=== PATIENT | female | born 1965 | race Caucasian/White ===

== ENCOUNTER 2017-07-24 06:02 | Day surgery (SDC) | payer MEDICARE, OTHER ==
[~2017-07-24] VITALS: Ht 157.5 cm; Wt 60.5 kg
[~2017-07-24 06:02] MED LIST: ALBU8.5H8 IH; FAMO20 PO; HYDR200T4 PO; MONT10TA21 PO
[2017-07-24] MEDS ORDERED: LIDOCAINE HCL 2% 30 ML JELLY TP ONE (06:03)
[2017-07-24] MEDS ORDERED: BENZOCAINE 20% 50 MCG/SPRAY 57 GM TP ONE (06:03)
[2017-07-24] MEDS ORDERED: LIDOCAINE HCL 4% 50 ML SOLUTION TP ONE (06:03)
[2017-07-24] MEDS ORDERED: SODIUM CHLORIDE 0.9% 1,000 ML IV ONE ×2 (06:30→06:40)
[2017-07-24] MEDS ORDERED: MIDAZOLAM HCL 2 MG/2 ML VIAL ONE (07:28)
[2017-07-24] MEDS ORDERED: FentaNYL CITRATE-PF 100 MCG/2 ML VIAL ONE (07:28)
[2017-07-24] MEDS ORDERED: MethylPREDNISolone SOD SUCC 125 MG/2 ML VIAL IVP ONE (08:45)
[2017-07-24] MEDS ORDERED: MethylPREDNISolone SOD SUCC 125 MG/2 ML VIAL ONE (09:14)
[2017-07-24] MEDS ORDERED: OXYGEN THERAPY IH SCH (20:00)
== END 2017-07-24 10:10 | disposition home or self-care (01) ==
LOC: SURGERY 06:02
PROVIDERS: ATTEND Internal Medicine Critical Care Medicine
DX: J38.4 Edema of larynx (principal); B37.0 Candidal stomatitis; D71 Functional disorders of polymorphonuclear neutrophils; L93.0 Discoid lupus erythematosus; D86.9 Sarcoidosis, unspecified; H40.9 Unspecified glaucoma; Z98.890 Other specified postprocedural states; Z98.42 Cataract extraction status, left eye; Z98.41 Cataract extraction status, right eye
CPT/HCPCS: 31623; 31624; 71010; 87015 ×2; 87070; 87101; 87205; 87220; 88108; 88184; 88185; 88312; J2250; J2930; J3010; J7030

== ENCOUNTER 2019-04-29 06:02 | Day surgery (SDC) | payer MEDICARE, OTHER ==
[~2019-04-29] VITALS: Ht 157.5 cm; Wt 60.5 kg
[~2019-04-29 06:02] MED LIST changes: -ALBU8.5H8 IH; +SODIUM CHLORIDE 0.9% 1,000 ML IV ONE; +SYMB8060 IH; +TRAVZOS OU
[2019-04-29] MEDS ORDERED: BENZOCAINE 20% 50 MCG/SPRAY 57 GM TP ONE (06:03)
[2019-04-29] MEDS ORDERED: LIDOCAINE 2% 30 ML JELLY TP ONE (06:03)
[2019-04-29] MEDS ORDERED: ALBUTEROL SULFATE 2.5 MG/0.5 ML NEB SOLUTION NEB ONE (06:03)
[2019-04-29] MEDS ORDERED: LIDOCAINE 4% 50 ML SOLUTION TP ONE (06:03)
[2019-04-29] MEDS: SODIUM CHLORIDE 0.9% 1,000 ML IV ONE (06:45)
[2019-04-29] MEDS ORDERED: FentaNYL CITRATE-PF 100 MCG/2 ML VIAL ONE ×3 (07:18→07:22)
[2019-04-29] MEDS ORDERED: MIDAZOLAM HCL 2 MG/2 ML VIAL ONE (07:18)
[2019-04-29] MEDS ORDERED: MethylPREDNISolone SOD SUCC 125 MG/2 ML VIAL ONE (08:35)
[2019-04-29] MEDS: MethylPREDNISolone SOD SUCC 125 MG/2 ML VIAL IVP ONE (08:39)
[2019-04-29] MEDS ORDERED: OXYGEN THERAPY IH SCH (20:00)
== END 2019-04-29 10:20 | disposition home or self-care (01) ==
LOC: SURGERY 06:02
PROVIDERS: ATTEND Internal Medicine Critical Care Medicine
DX: J38.4 Edema of larynx (principal); B37.0 Candidal stomatitis; H40.9 Unspecified glaucoma; Z98.42 Cataract extraction status, left eye; Z98.41 Cataract extraction status, right eye; Z98.890 Other specified postprocedural states
CPT/HCPCS: 31623; 31624; 71045; 87015; 87070; 87101; 87205; 87206; 87220; 88108; 88312; J2250; J2930; J3010; J7030

== ENCOUNTER 2022-12-03 06:47 | Day surgery (SDC) | payer OTHER ==
[~2022-12-03] VITALS: Ht 152.4 cm; Wt 59.0 kg
[~2022-12-03 06:47] MED LIST changes: +ALBU8HFA IH; +BUDE10.2 IH; +DORZ10DR10 OU; +HYDR200T38 PO; -HYDR200T4 PO; +HYDR200T83 PO; +HYDR25TA2 PO; +LISI-893 PO; +MONT-35 PO; -MONT10TA21 PO; +NETA2.5D OU; +SULF500T60 PO; +TRAV2.5D7 OU; -TRAVZOS OU; +XALA2.5OS OS
[2022-12-03] MEDS ORDERED: BENZOCAINE 20% 50 MCG/SPRAY 57 GM TP ONE (06:48)
[2022-12-03] MEDS ORDERED: LIDOCAINE 4% 50 ML SOLUTION TP ONE (06:48)
[2022-12-03] MEDS ORDERED: LIDOCAINE 2% 11 ML JELLY TP ONE (06:48)
[2022-12-03] MEDS ORDERED: SODIUM CHLORIDE 0.9% 1,000 ML ONE (07:30)
[2022-12-03 07:32] LABS: COVID AG,FIA SOURCE NASAL SWAB
[2022-12-03] MEDS ORDERED: ADAL40PE5 INJ (07:37)
[2022-12-03] MEDS ORDERED: PREDAOS OU (07:37)
[2022-12-03] MEDS ORDERED: FentaNYL CITRATE PF 100 MCG/2 ML VIAL ONE (08:23)
[2022-12-03] MEDS ORDERED: MIDAZOLAM HCL 2 MG/2 ML VIAL ONE (08:23)
[2022-12-03] MEDS ORDERED: MethylPREDNISolone SOD SUCC 125 MG/2 ML VIAL IVP ONE (09:45)
== END 2022-12-03 11:25 | disposition home or self-care (01) ==
LOC: SURGERY 06:47
PROVIDERS: ATTEND Internal Medicine Critical Care Medicine
DX: R05.3 Chronic cough (principal); R91.1 Solitary pulmonary nodule; J98.09 Other diseases of bronchus, not elsewhere classified; I10 Essential (primary) hypertension; J98.8 Other specified respiratory disorders; Z20.822 Contact with and (suspected) exposure to COVID-19; Z98.890 Other specified postprocedural states; Z79.899 Other long term (current) drug therapy
CPT/HCPCS: 31623; 88112; 87101; 87220; 87070; 31624; 71045; 87015; 87426; 87206; J3010; J2250; J2930; Q9967; J7030; C9803; Z7610